=== PATIENT | female | born 1990 | race Caucasian/White ===

== ENCOUNTER 2022-02-23 13:58 | Emergency (ER) | payer MEDICAID ==
[~2022-02-23] VITALS: Ht 165.1 cm; Wt 73.5 kg
[2022-02-23 14:04] VITALS: BP 125/93
--- NOTE | 2022-02-23 14:24 | NUR ---
31 Y/O FEMALE BIB SELF C/O SOB, DECREASED HEARING IN BOTH EARS, STUFFY NOSE, PRODUCTIVE COUGH WITH MUCUS X9DAYS. DENIES ANY MEDICATION FOR SYMPTOMS, STATES THEY HAD A PUFF OF THEIR INHALER TODAY FOR SOB. NOTED CRACKLES IN BILATERAL UPPER LOBES. DENEIS ANY FEVER/ NAUSEA/VOMITING. STATES THAT SHE WAS IN CONTACT WITH SOMEONE SICK ON WEDNESDAY LAST WEEK. PMH: ASTHMA NKA
--- NOTE | 2022-02-23 14:29 | NUR ---
DR OSWALD AT BEDSIDE FOR EVAL
--- NOTE | 2022-02-23 14:29 | NUR ---
RAD AT BEDSIDE
[2022-02-23] MEDS ORDERED: KETOROLAC 60 MG/2 ML VIAL IM ONE (14:35)
[2022-02-23] MEDS ORDERED: PSEU120T22 PO (16:07)
[2022-02-23] MEDS ORDERED: IBUP-2213 PO (16:07)
[2022-02-23] MEDS ORDERED: PRED20TA5 PO (16:07)
[2022-02-23 16:18] VITALS: BP 110/68
--- NOTE | 2022-02-23 16:19 | NUR ---
Patient discharged with v/s stable. Written and verbal after care instructions ABOUT INFLUENZA AND COUGH given and explained. Patient alert, oriented and verbalized understanding of instructions. Ambulatory with steady gait. All questions addressed prior to discharge. ID band removed. Patient advised to follow up with PMD. Rx of IBUPROFEN, DELTASONE, SUDAFED 12 HOUR given. Patient educated on indication of medication including possible reaction and side effects. Opportunity to ask questions provided and answered.
== END 2022-02-23 16:19 | disposition home or self-care (01) ==
LOC: MED 13:58
DX: J11.1 Influenza due to unidentified influenza virus with other respiratory manifestations (principal); J45.909 Unspecified asthma, uncomplicated; Z98.890 Other specified postprocedural states
CPT/HCPCS: 71045; 81002; 81025; 96372; 99283; J1885; Q0092